=== PATIENT | female | born 1960 | race Caucasian/White ===

== ENCOUNTER → 2022-07-06 18:11 | Outpatient (CLI) | payer OTHER, SELFPAY ==
--- NOTE | 2022-07-06 | DI.MRI.S_ITS ---
PROCEDURE: MR CERVICAL SPINE WO CON INDICATIONS: Spinal stenosis, cervical region TECHNIQUE: Noncontrast sagittal T1 spin echo and T2 fast spin echo, sagittal STIR, foraminal oblique sagittal T2 fast spin echo, and axial gradient echo or T2 fast spin echo through the cervical spine. COMPARISON: None. FINDINGS: Image quality: Excellent. Alignment and Curvature: Loss of normal cervical lordosis. 2 mm of retrolisthesis of C5 on C6 and C6 on C7. Bone Marrow: Marrow demonstrates normal overall signal. Moderate reactive signal within the endplates adjacent to the C3-C4 and C5-C6 intervertebral discs. Mild reactive signal adjacent to the remaining cervical and upper thoracic intervertebral discs. Atypical C7 hemangioma is present. Spinal Cord: Visualized spinal cord has normal siz. There is moderate T2 signal elevation within the mid/lower cervical cord at the C5 level. No cerebellar tonsillar herniation. Paraspinous Soft Tissues: No paravertebral masses. Prevertebral soft tissues are normal in thickness. C2-C3: Moderate disc desiccation. Mild diffuse disc bulge. Mild facet and uncovertebral hypertrophy. Mild canal stenosis. Moderate left and mild right foraminal stenosis. C3-C4: Moderate disc desiccation. Mild disc height loss and diffuse disc bulge. Moderate left greater than right facet and uncovertebral hypertrophy. Moderate to severe canal stenosis. Mild anterior cord flattening. Severe left greater than right foraminal stenosis with bilateral C4 nerve root compression. C4-C5: Mild disc height loss and desiccation. Mild diffuse disc bulge with superimposed left posterolateral protrusion. Mild facet and uncovertebral hypertrophy bilaterally. Moderate canal stenosis. Severe bilateral foraminal stenosis. Bilateral C5 nerve root compression. C5-C6: Moderate disc desiccation. Mild disc height loss. Moderate diffuse disc bulge/osteophyte with superimposed left paracentral protrusion/osteophyte. Severe canal stenosis. Severe cord flattening. Severe bilateral foraminal stenosis with bilateral C6 nerve root compression. C6-C7: Moderate disc desiccation. Mild disc height loss. Mild diffuse disc bulge with superimposed left paracentral protrusion. Mild facet and uncovertebral hypertrophy bilaterally. Severe canal stenosis. Moderate cord flattening. Moderate left and severe right foraminal stenosis. Right C7 nerve root compression. C7-T1: Moderate disc desiccation. Mild disc height loss and diffuse disc bulge. Mild facet and uncovertebral hypertrophy. Mild canal stenosis. Mild bilateral foraminal stenosis. IMPRESSION: 1. Multilevel degenerative disc and facet disease, as well as uncovertebral hypertrophy. 2. Multilevel canal stenoses, worst at C3-C4, C5-C6, and C6-C7, where there is cord flattening as described above. 3. Multilevel foraminal stenoses, worst at C3-C4, C4-C5, C5-C6, and C6-C7, where there is associated intraforaminal nerve root compression. Recommend correlation with clinical symptoms to ascertain relevance of these findings. 4. Cord signal abnormality within the mid/lower cervical cord as described above, consistent with gliosis/cord injury given the regions of adjacent cord flattening. Dictated by: Valencia Mueller M.D. on 07/07/2022 at 8:42 Approved by: Valencia Mueller M.D. on 07/07/2022 at 8:47
== END ==
PROVIDERS: Family Provider Family Medicine; PCP Family Medicine; Referring Provider Orthopaedic Surgery Orthopaedic Surgery of the Spine; Visit Provider Orthopaedic Surgery Orthopaedic Surgery of the Spine
DX: M48.02 Spinal stenosis, cervical region (principal); M50.31 Other cervical disc degeneration, high cervical region; M47.892 Other spondylosis, cervical region
CPT/HCPCS: 72141

== ENCOUNTER 2022-08-24 05:49 | Inpatient (IN) | payer OTHER, SELFPAY ==
[2022-08-18 08:51] VITALS: BMI 34.9
[2022-08-24] VITALS (11 sets, daily range): BP systolic 101–155; BP diastolic 62–95; PULSE 61–84; RESP 16–19; TEMP 36–36.6; O2SAT 93–99; BMI 34.7
[2022-08-24] MEDS: LACTATED RINGERS 1,000 ML 42 ML IV ×2 (07:06→10:08)
--- NOTE | 2022-08-24 07:42 | PM.PREOP ---
Pre-operative Note COVID-19 Criteria for continued procedure: Expected advancement of disease process, Possibility delay results in more complex future surgery or treatment, Increased loss of function, Continuing or worsening of significant or severe pain, Deterioration of the patient's condition or overall health and Delay expected to result in less-positive ultimate med/surg outcome Interval Note History & Physical reviewed/Exam performed by Physician: Yes Changes to H&P: No
[2022-08-24] MEDS: CEFAZOLIN 2 GM/100 ML PREMIX 100 ML IV ×3 (08:00→23:52)
--- NOTE | 2022-08-24 08:19 | SUR.OPER ---
Supine, head on gel donut. Arms padded with gel pads, tucked at sides, towel roll under shoulders. Safety belt at thigh. Legs uncrossed.
[2022-08-24] MEDS: BUPIVACAINE 0.25% (PF) 10 ML, EPINEPHrine 0.15 MG INJ (08:23)
--- NOTE | 2022-08-24 10:36 | PM.OP.1 ---
Operative Date/Time/Diagnoses Date of procedure: 08/24/22 Time of procedure: 07:40 Pre-op diagnosis: 1. C5-6, C6-7 spinal stenosis 2. C5-6, C6-7 spondylosis with myelopathy Post-op diagnosis: same Procedure & Clinicians Procedure: 1. C5-6 C6-7 anterior cervical diskectomy and fusion 2. C5-6 C6-7 anterior interbody cage placement 3. C5-6 C6-7 anterior instrumentation with plate and screw placement in C5-C6 and C7 vertebrae 4. Utilization of microsurgical technique and operating microscope Same procedure as scheduled: Yes Indications: Patient has been having chronic neck pain and worsening cervical radiculopathy and myelopathy. Patient failed multiple conservative management with worsening pain weakness and numbness in her upper extremity as well as poor balance and decreased motor function in her legs. Patient has been having difficulty performing activity of daily living. After discussing risks benefits of treatment options, patient elected proceed with surgery. Surgeon: Paras Hughes [employer] Manager: Elida Pascal Click Yes if Unassisted: No Anesthesia Type: General Operative Notes Closure Type: primary Specimen(s): none sent Prosthetic devices, grafts, tissues, transplants, or devices: Globus Extend Plate, Hedron C cages Estimated Blood Loss (mL): 5 Blood products transfused: none Procedure in detail: Patient was seen in the preoperative area. Risks and benefits of the surgery was discussed with the patient. Operative consent was obtained and placed in the chart. Patient was then taken to the operative room. Prophylactic antibiotic was given less than 0.5 hr prior to skin incision. General anesthesia was administered. Patient was placed into a supine position on her radiolucent table. Bilateral shoulders were taped down to allow proper C-arm imaging. Anterior cervical area was prepped and draped in a sterile fashion. Time-out was performed at this time. Using lateral C-arm imaging, the level between C5 and C7 was identified and marked on patient's neck. A oblique incision from midline towards medial border of sternocleidomastoid muscle was made. The platysma muscle was incised in line with skin incision. Metzenbaum scissor was used to develop the plane between the medial border of sternocleidomastoid d and the strap muscles medially. The carotid sheath and its contents were identified and protected behind the hand-held retractor during the entire case. The plane between the carotid sheath and strap muscles was developed with Metzenbaum scissors. Dissection was made down to the level of the anterior cervical fascia. Longus colli muscle was incised on the anterior aspect of vertebral bodies bilaterally from C5-C7. Spinal needle was placed into the C5-6 disc space and confirmed with lateral C-arm imaging. Using microsurgical technique and operative microscope, anterior cervical diskectomy was performed at C5-6 and C6-7 level. This was done by removing the disc material, removing the anterior and posterior osteophytes posterior longitudinal ligaments along with performing bilateral foraminotomies at both levels. Patient was found to have severe central and foraminal stenosis at both levels. Patient's stenosis was fully decompressed after decompression was completed. After the diskectomy was completed, 2 anterior interbody cages were obtained. The cages were packed with globus DBM bone grafting material. One cage each along with the bone grafting material was then packed into the interbody spaces from C5-C7 with one cage into each interbody level. After the cages were placed, the anterior cervical plate was stabilized to the C5-C7 vertebrae using 2 screws at each each level. Total 6 screws were placed. After confirming placement of the hardware with AP and lateral C-arm imaging, the screws were locked into the plate using the locking mechanism and torque limiting screwdriver. After the hardware was placed and confirmed with AP and lateral C-arm imaging, the wound was irrigated with sterile normal saline. The platysma muscle and the subcutaneous tissue was closed with 2-0 Vicryl. The skin was closed with 4-0 Monocryl and Steri-Strips. Patient tolerated the procedure well. Patient was transferred recovery room in stable condition. There were no complications. Neuro monitoring along with motor evoked potential was used to monitor patient's neurological status. Patient's signals were stable throughout the entire procedure. Complications: none Post-operative Condition: stable Disposition: PACU Plan for aftercare: Admit to inpatient hospital
--- NOTE | 2022-08-24 10:45 | DI.RAD.S_ITS ---
PROCEDURE: XR CERVICAL SPINE 2V OR 3V INDICATIONS: C5-6, C6-7 ACDF TECHNIQUE: 2 view(s) of the cervical spine were acquired. COMPARISON: None. FINDINGS: Fluoroscopic guidance utilized for ACDF of C5-6, and C6-7. No hardware complication. Bones appear intact. Partially visualized endotracheal tube. IMPRESSION: Fluoroscopic guidance. Dictated by: Corwin Hernandez M.D. on 08/24/2022 at 10:57 Approved by: Corwin Hernandez M.D. on 08/24/2022 at 10:57
[2022-08-24] MEDS: OXYCODONE IR 5 MG TABLET PO ×5 (11:01→23:55)
[2022-08-24] MEDS: hydrOXYzine pamoate 25 MG CAPSULE PO ×3 (11:01→23:55)
[2022-08-24] MEDS: SERTRALINE 50 MG TABLET 100 MG PO (11:45)
[2022-08-24] MEDS: HYDROMORPHONE 0.5 MG INJ IV (11:45)
[2022-08-24] MEDS: LACTATED RINGERS 1,000 ML 125 ML IV ×2 (11:46→18:06)
[2022-08-24] MEDS: ACETAMINOPHEN 325 MG TABLET 650 MG PO ×2 (12:48→18:43)
--- NOTE | 2022-08-24 18:15 | PC.NURSE ---
Day shift: Pt admitted to floor from PACU at 1115am. Pt rating pain 9/10. Gave IV dilaudid and vistaril for muscle spasms. LR at 125 in L wrist PIV. Pt denies nausea/vomiting. Tolerating general diet. OOB with 1PA to BR. Voiding without issue. Pt's pain now adequately managed with 5mg oxycodone and APAP. Pt came up to the floor with 2L O2. Pt diligently using incentive spirometer every hour. Now sat'ing 96 percent on room air. Will continue to monitor.
[2022-08-24] MEDS: DOCUSATE 100 MG CAPSULE PO (21:01)
[2022-08-24] MEDS: SENNOSIDES 8.6 MG TABLET 17.2 MG PO (21:01)
--- NOTE | 2022-08-24 23:19 | PC.NURSE ---
Patient is alert and oriented. Does have a sore throat but denies any swallowing difficulties and able to take meds without problem. Breath sounds CTA with RA sat of 94%. HRR. Denies nausea. BT hypoactive but is passing flatus. Denies dysuria with urination. Is able to move herself in bed and gets up to bathroom with SBA. CMS is intact bilaterally. Dressing to anterior neck is CDI; wearing soft cervical collar. Bilateral SCD's were applied. Fall risk score is low but have asked patient to call for assistance when getting out of bed. Did ambulate in all with SBA and tolerated well and appeared steady on feet.
[2022-08-25] MEDS: LACTATED RINGERS 1,000 ML 125 ML IV (02:49)
[2022-08-25 03:20] VITALS: BP 124/72; PULSE 60; RESP 20; TEMP 36.3; O2SAT 95
[2022-08-25] MEDS: hydrOXYzine pamoate 25 MG CAPSULE PO ×2 (03:56→08:15)
[2022-08-25] MEDS: OXYCODONE IR 5 MG TABLET PO ×3 (03:56→11:08)
[2022-08-25 07:00] VITALS: BP 137/80; PULSE 69; RESP 17; TEMP 36.5; O2SAT 96
[2022-08-25] MEDS: AMLODIPINE 5 MG TABLET 10 MG PO (08:14)
[2022-08-25] MEDS: DOCUSATE 100 MG CAPSULE PO (08:14)
[2022-08-25] MEDS: LORATADINE 10 MG TABLET PO (08:15)
[2022-08-25] MEDS: SERTRALINE 50 MG TABLET 100 MG PO (08:15)
--- NOTE | 2022-08-25 09:07 | PT.IIE ---
Current Diagnoses Other spondylosis with myelopathy, cervical region (08/24/22) Spinal stenosis, cervical region (08/24/22) Surgery Performed Operation Date: 08/24/22 07:45 Actual Procedures p C5-6, C6-7 ACDF w/ anterior instrumentation - Paras Hughes MD Surgical History (Last Updated 08/18/22 @ 09:11 by Gloria Junior, RN) History of bilateral carpal tunnel release History of bunionectomy of left great toe History of bunionectomy of right great toe History of hysterectomy History of total left knee replacement (10/14/16) Hx of appendectomy Hx of arthroscopy of left knee Hx of arthroscopy of right knee Hx of cholecystectomy Hx of dilation and curettage Hx of knee surgery Hx of ovarian cystectomy Hx of reduction mammoplasty Hx of tonsillectomy S/P excision of lipoma Medical History (Last Updated 08/18/22 @ 09:17 by Gloria Junior RN) Anxiety Eczema History of COVID-19 (01/2021) HTN (hypertension) Left foot drop Seasonal allergies Physical Therapy Inpatient Evaluation/Re-Eval M1 PT/OT-IP Prior Functional Status Start: 08/25/22 08:15 Freq: NEEDED Status: Active Protocol: Document 08/25/22 08:51 AMB (Rec: 08/25/22 09:07 AMB [id number]) Medical Review Prior Functional Status Medical History Reviewed Yes Activities of Daily Living and IADL's Pt reports I with all ADLs no AD to ambulate, ambulating community distances, did have drop foot on L prior to surgery Social History Household Members spouse,family Living Arrangements House Number of Floors (Floors) One Floor Number of Stairs To Enter/Railing? 2 with railing Home Environment Tub/Shower M2 PT-IP Current Condition Start: 08/25/22 08:15 Freq: NEEDED Status: Active Protocol: Document 08/25/22 08:51 AMB (Rec: 08/25/22 09:07 AMB [id number]) Physical Therapy Current Condition Current Condition Evaluation Date 08/25/22 Treatment Diagnosis s/p cervical ACDF C56,67 Onset Date 08/24/22 M3 PT-IP Subjective Start: 08/25/22 08:15 Freq: NEEDED Status: Active Protocol: Document 08/25/22 08:51 AMB (Rec: 08/25/22 09:07 AMB [id number]) Subjective Physical Therapy Visit Type Type Initial Evaluation Visit Start Time 08:30 Visit Stop Time 08:50 Total Visit Minutes 20 Physical Therapy Visit Comments Patient Comments Pt reports 7-8/10 in bilateral shoulders did just get pain meds, hoping to go home today Therapy Pain Assessment Pain When Pain Assessed At Rest Pain Present Pain Present Pain Reported Location neck Intensity 7 Scale Used Numeric (0 - 10) M4 PT-IP Mobility and Gait Start: 08/25/22 08:15 Freq: NEEDED Status: Active Protocol: Document 08/25/22 08:51 AMB (Rec: 08/25/22 09:07 AMB [id number]) PT-Bed Mobility Assessment Rolling Type of Rolling Log Rolling Level of Assist Standby Assistance Supine to Sit Supine to Sit Standby Assistance,Head of Bed Elevated Sit to Supine Sit to Supine Standby Assistance,Head of Bed Elevated PT-Transfer Assessment Sit to and From Stand Sit to and from Stand Standby Assistance Equipment Transfer Assistive Device None Transfers Transfer Destination Toilet Transfer Technique Stand Step Pivot Transfer Ability Level of Assist Standby Assistance Comments Mobility Comments Pt performed all bed mobility with SBA, no increase in pain, pt reports reduction in pain with gentle movement Gait Assessment Gait Gait Assistance Required: Standby Assistance Distance (Feet) 250 Gait Deviations General Gait Pattern Within Normal Limits Factors Limiting Gait Function Factors Limiting Gait Function Decreased Activity Tolerance Comments Gait Comments Pt ambulated from room to small stairs, did hold on to IV pole. Pt was able to ambulate around room without IV pole without showing significant signs of foot drop . Stair Climbing Assessment Evaluation Level of Assist On Stairs Standby Assistance Devices Stair Climbing Assistive Devices Left Railing Technique/Endurance Stair Climbing Direction Ascend and Descend Stair Climbing Technique Step Over Step Number of Steps Climbed 3 Query Text: Stair Climbing Set # Repetitions (reps) 2 Comments Stair Climbing Comments Pt ambulated with step to step gait patterning M5 PT-IP Objective Assessments Start: 08/25/22 08:15 Freq: NEEDED Status: Active Protocol: Document 08/25/22 08:51 AMB (Rec: 08/25/22 09:07 AMB [id number]) Orientation Orientation/Cognition Level of Alertness Alert Gross Range of Motion Upper Extremity ROM Assessment Within Functional Limits Lower Extremity ROM Assessment Within Functional Limits Strength Upper Extremity Strength Assessment Within Functional Limits Lower Extremity Strength Assessment Within Functional Limits Sensation Assessment Sensation Gross Sensation WNL Comments Sensation Comments No numbness noted M6 PT-IP Treatment Start: 08/25/22 08:15 Freq: NEEDED Status: Active Protocol: Document 08/25/22 08:51 AMB (Rec: 08/25/22 09:07 AMB [id number]) Physical Therapy Treatment Education Education Provided Precautions,Post-Op Packet, Safety Brace Education Patient M7 PT-IP Assessment and Plan Start: 08/25/22 08:15 Freq: NEEDED Status: Active Protocol: Document 08/25/22 08:51 AMB (Rec: 08/25/22 09:07 AMB [id number]) PT Summary Assessment and Plan Potential Rehabilitation Potential Good Status of Condition at Evaluation Stable Summary Impairments Pain,Activity Tolerance Progress Towards Goals Progressing Toward Goals Assessment Summary Mee had cervical ACDF on 08/24 and is ready to discharge home. She was able to perform all bed mobility with SBA, ambulated around her room without AD, walked 200+ feet to the stairs with IV pole assist and ascended and descended 3 stairs with 1 railing without difficulty or increased pain. She was able to independently doff undergarments to use toilet and performed pericare independently. Her and DIL will be home to assist her. Discussed tub and car transfers. Pt is ready to d/c home when medically cleared. Goals Bed Mobility Goal Independent Transfer Goal Independent Gait Goal Independent Gait Distance 300 Days to Meet Goals 1 Frequency of Treatment Frequency Of Treatment Discharge Treatment Plan Physical Therapy Treatment Plan Bed Mobility Training,Transfer Training,Gait Training,Hot or Cold Pack Weight Bearing Status Weight Bearing Status Full Weight Bearing Recommendations To Nursing Amount of Assist Needed Standby Assistance Discharge Recommendations PT Discharge Recommendations Home Transportation Needs at Discharge Private Vehicle
--- NOTE | 2022-08-25 09:12 | PM.PNPO.1 ---
Subjective Subjective Interval history: Patient is postoperative day 1. Of a cervical spine surgery by Dr. Sidhu. Patient doing very well without any complaints. Has been ambulating well with physical therapy. Exam Vital Signs (past 8 hours): - 08/25/22 03:20 08/25/22 07:00 Temperature 97.4 F L 97.7 F Pulse Rate 60 69 Respiratory Rate 20 17 Blood Pressure 124/72 137/80 Pulse Oximetry 95 96 Oxygen Flow Rate 0 0 Oxygen Delivery Method Room Air Oxygen Flow Rate 0 Narrative Exam Narrative: Incision site is clean and dry. Good range of motion of the upper extremity without any pain or weakness. [facility] Medical History (Updated 08/18/22 @ 09:17 by Gloria Junior RN) Anxiety Eczema History of COVID-19 (01/2021) HTN (hypertension) Left foot drop Seasonal allergies Surgical History (Updated 08/18/22 @ 09:11 by Gloria Junior RN) History of bilateral carpal tunnel release History of bunionectomy of left great toe History of bunionectomy of right great toe History of hysterectomy History of total left knee replacement (10/14/16) Hx of appendectomy Hx of arthroscopy of left knee Hx of arthroscopy of right knee Hx of cholecystectomy Hx of dilation and curettage Hx of knee surgery Hx of ovarian cystectomy Hx of reduction mammoplasty Hx of tonsillectomy S/P excision of lipoma Social History household members: spouse and family Smoking Status: Never smoker alcohol intake: current Assessment & Plan Post-op Postoperative Procedures: Procedures Operation Date: 08/24/22 07:45 Actual Procedure Side Surgeon p C5-6, C6-7 ACDF w/ anterior instrumentation Paras Hughes MD Postoperative day: 1 Postoperative status: doing well Postoperative plan: discharge Postoperative plan narrative: Patient doing well after cervical spine surgery. Patient is cleared to be discharged home today. Quality VTE Deep Vein Thrombosis/Pulmonary Embolism Present on Admission: No
--- NOTE | 2022-08-25 09:17 | OT.IP.EVAL ---
Current Diagnoses Other spondylosis with myelopathy, cervical region (08/24/22) Spinal stenosis, cervical region (08/24/22) Surgery Performed Operation Date: 08/24/22 07:45 Actual Procedures p C5-6, C6-7 ACDF w/ anterior instrumentation - Paras Hughes MD Past Medical History (Last Updated 08/18/22 @ 09:17 by Gloria Junior, RN) Anxiety Eczema History of COVID-19 (01/2021) HTN (hypertension) Left foot drop Seasonal allergies Surgical History (Last Updated 08/18/22 @ 09:11 by Gloria Junior RN) History of bilateral carpal tunnel release History of bunionectomy of left great toe History of bunionectomy of right great toe History of hysterectomy History of total left knee replacement (10/14/16) Hx of appendectomy Hx of arthroscopy of left knee Hx of arthroscopy of right knee Hx of cholecystectomy Hx of dilation and curettage Hx of knee surgery Hx of ovarian cystectomy Hx of reduction mammoplasty Hx of tonsillectomy S/P excision of lipoma Occupational Therapy Inpatient Evaluation/Re-Eval M1 PT/OT-IP Prior Functional Status Start: 08/25/22 10:15 Freq: NEEDED Status: Active Protocol: Document 08/25/22 10:16 [facility] (Rec: 08/25/22 10:29 [facility] [id number]) Medical Review Prior Functional Status Medical History Reviewed Yes Activities of Daily Living and IADL's Pt reports I with all ADLs no AD to ambulate, ambulating community distances, did have drop foot on L prior to surgery Social History Household Members spouse,family Living Arrangements House Number of Floors (Floors) One Floor Number of Stairs To Enter/Railing? 2 with railing Home Environment Tub/Shower M2 OT-IP Current Condition Start: 08/25/22 10:15 Freq: Status: Active Protocol: Document 08/25/22 10:16 [facility] (Rec: 08/25/22 10:29 [facility] [id number]) Occupational Therapy Current Condition Current Condition Evaluation Date 08/25/22 Treatment Diagnosis S/P C5-6, C6-7 ACDF Diagnosis Onset Date 08/24/22 Post Operative Precautions Cervical Spine Precautions Soft Collar for Comfort,Soft Collar at all Times,Rigid Collar,No Heavy Lifting,Log Roll M3 OT- IP Subjective and Pain Start: 08/25/22 10:15 Freq: Status: Active Protocol: Document 08/25/22 10:16 [facility] (Rec: 08/25/22 10:29 [facility] [id number]) OT- Subjective Occupational Therapy Visit Type Type Initial Evaluation Visit Start Time 08:55 Visit Stop Time 09:17 Total Visit Minutes 22 Occupational Therapy Visit Comments Patient Comments Pt agreed to get up. Patient/Caregiver Goals To go home. OT Pain Assessment Pain When Pain Assessed At Rest Pain Present Pain Present Pain Reported Location neck Intensity 4 Scale Used Numeric (0 - 10) M4 OT- IP ADL's Start: 08/25/22 10:15 Freq: Status: Active Protocol: Document 08/25/22 10:16 [facility] (Rec: 08/25/22 10:29 [facility] [id number]) OT MDF-Vpmz-Qorhrqa Comments OT Self-Feeding Comments Pt states had no issues for eating at this time and able to go over information for swallowing needs after ACDF with the pt. OT ADL-Grooming Comments OT Grooming Comments Not performed. OT ADL-Oral Care Comments Oral Care Comments Educated best to spit into a cup of hinge at her hips to spit to best follow her cervical precautions. OT ADL-Dressing Comments OT Dressing Comments Pt able to radha/doff the soft collar on her own. Pt states to wear slippers and that her will just be assisting her.Educated pt to make sure that her footwear fits well to prevent falls. OT ADL-Toileting Comments OT Toileting Comments Not performed. OT ADL-Bathing Comments OT Bathing Comments Pt states has a shower chair and that her to assist . M5 OT- IP IADL's Start: 08/25/22 10:15 Freq: Status: Active Protocol: Document 08/25/22 10:16 [facility] (Rec: 08/25/22 10:29 [facility] [id number]) OT-Instrumental Activities of Daily Living Deficits IADL Deficits Identified Deficits Home Safety Awareness Awareness of Need for Assistance at Home Good Awareness Home Safety Comments Pt has a supportive to assist at home. M6 OT- IP Functional Cognition Start: 08/25/22 10:15 Freq: Status: Active Protocol: Document 08/25/22 10:16 [facility] (Rec: 08/25/22 10:29 [facility] [id number]) Cognitive Factors Limiting Selfcare Function Cognitive Ability Level of Alertness Alert Patient Orientation Name,Age,Birthday,Month,Date, Year,Day of Week,Place, Situation Attention Span Ability Capable of Focused Attention, Capable of Sustained Attention Ability to Follow Commands Able to Follow Multi-Step Commands Safety Awareness Decreased Ability to Apply Precautions Cognitive Comments Cognitive Assessment Comments Pt needing reminders to incorporate her cervical precautions as pt tends to come up into log sitting instead of doing log rolling for bed mobility needs. OT- Vision and Hearing OT- Hearing Assessment OT- Hearing Assessment WFL OT- Vision Assessment Visual Acuity Glasses For Reading M7 OT- IP Mobility and Balance Start: 08/25/22 10:15 Freq: Status: Active Protocol: Document 08/25/22 10:16 [facility] (Rec: 08/25/22 10:29 [facility] [id number]) OT- Bed Mobility Assessment Supine to Sit Supine to Sit Assist Standby Assistance Sit to Supine Sit to Supine Assist Standby Assistance OT-Transfer Assessment Sit to and From Stand Sit to and from Stand Standby Assistance Transfers Transfer Ability Standby Assistance,Contact Guard Assistance Technique Transfer Destination Bed Transfer Technique Stand Step Pivot Devices Transfer Assistive Devices Gait Belt,Front Wheeled Walker Comments Mobility Comments CGA without the FWW as a little unsteady and just having pain medications. Pt SBA with FWW and felt better using the FWW at this time. BP 151/91, sitting 127/71, and standing 117/73.. pt states just feeling tired from the medications and not symptomatic at this time. OT- Balance Assessment Sitting Balance and Reactions Static Sitting Balance Ability Normal Dynamic Sitting Balance Ability Good Standing Balance and Reactions Static Standing Balance Ability Good Dynamic Standing Balance Ability Fair M9 OT- IP Assessment and Plan Start: 08/25/22 10:15 Freq: Status: Active Protocol: Document 08/25/22 10:16 [facility] (Rec: 08/25/22 10:29 [facility] [id number]) OT Summary Assessment and Plan Potential Rehabilitation Potential Good Analytic Complexity at Evaluation Low Summary OT Impairments Pain,Balance,Functional Mobility,Dressing,Toileting, Bathing,Toilet Transfers, Shower Transfers Progress Towards Goals Progressing Toward Goals,Slow Progress due to Pain Assessment Summary Pt low complexity and doing well and needing reminders to go log rolling for bed mobility needs. Pt looking to go home with her when medically stable. Goals Dressing Goal Independent Toileting Goal Independent Bathing Goal Independent Toilet Transfer Goal Independent Shower Transfer Goal Independent Days to Meet Goals 5 Frequency of Treatment Frequency Of Treatment Once a Day Treatment Plan OT Treatment Plan ADL Training,Functional Mobility,Patient/Family Education,Discharge Planning Discharge Recommendations OT Discharge Recommendations Home with Assistance Transportation Needs at Discharge Private Vehicle
--- NOTE | 2022-08-25 11:32 | PC.NURSE ---
Discharge Note Patient A&O, VSS, RA, no complaints of pain/discomfort. Patient agreeable to discharge plan. Discharge packet reviewed with patient, all questions/concerns addressed. PIV discontinued. Patient able to dress self and pack all belongings. Patient taken down via wheelchair to POV.
--- NOTE | 2022-08-25 11:46 | CM.DANOTE ---
Initial DCP Assessment Note Pt is a 61 yo female, resident of [place], now POD#1 from cervical spinal surgery by Dr Hughes PCP: Radha Sibley Payer: Jeremias Brice Reviewed chart, pt discussed in multidisciplinary rounds this morning. Therapy has cleared pt for return home w/family to assist and pt has planned for home, DC order from Ortho has already been initiated this morning. Met w/patient to introduce self and role. Patient eager to return home and denies needs from this RETRIMMER No barriers identified at this time to patient's safe discharge home w/family to assist; close outpatient f/u recommended. TODD Willard Discharge Planning/Care Management CM Discharge Assessment Start: 08/25/22 11:44 Freq: Status: Active Protocol: Document 08/25/22 11:44 [facility] (Rec: 08/25/22 11:46 [facility] [id number]) Discharge Planning Assessment Assigned Certified Veterinary Technician TODD Sullivan DPOA/Assigned Designee Name Sagar () Contact Information [phone] Advance Directives? Yes Advance Directives on File No History Provided By Patient,Medical Record Prior Living Arrangements House Household Members spouse,family Type of transporation used prior to Drives own vehicle admit Independent with ADL's Yes Is patient alert and oriented? Yes Patient/Family Preference OP PT Therapy Barriers to Discharge No Discharge Plan Home Transportation Arrangement Family Referrals Initiated None needed
== END 2022-08-25 11:30 | disposition home or self-care (01) | DRG 472 ==
PROVIDERS: Admitting Provider Orthopaedic Surgery Orthopaedic Surgery of the Spine; Family Provider Family Medicine; PCP Family Medicine; Referring Provider Orthopaedic Surgery Orthopaedic Surgery of the Spine; Visit Provider Orthopaedic Surgery Orthopaedic Surgery of the Spine
PROC: 0RG20A0 Fusion of 2 or more Cervical Vertebral Joints with Interbody Fusion Device, Anterior Approach, Anterior Column, Open Approach (ICD-10-PCS; principal; 2022-08-24 07:45)
DX: M48.02 Spinal stenosis, cervical region (principal); M47.12 Other spondylosis with myelopathy, cervical region; I10 Essential (primary) hypertension; F41.9 Anxiety disorder, unspecified; Z20.822 Contact with and (suspected) exposure to COVID-19
CPT/HCPCS: 72040; 76000; 97161; 97165; C1713; J0171; J0330; J0690; J1100; J1170; J2250; J2405; J2704; J3010